=== PATIENT | female | born 1935 | race Caucasian/White ===

== ENCOUNTER 2018-06-21 09:38 | Emergency (ER) | payer OTHER ==
[~2018-06-21] VITALS: Ht 175.3 cm; Wt 113.4 kg
[2018-06-21 11:41] VITALS: BP 156/78
== END 2018-06-21 11:56 | disposition home or self-care (01) ==
LOC: FSED 09:38
DX: L03.031 Cellulitis of right toe (principal); E11.40 Type 2 diabetes mellitus with diabetic neuropathy, unspecified; I10 Essential (primary) hypertension; Z89.512 Acquired absence of left leg below knee
CPT/HCPCS: 99282

== ENCOUNTER 2019-07-02 12:59 | Inpatient (IN) | payer MEDICARE, OTHER ==
[~2019-07-02] VITALS: Ht 170.2 cm; Wt 118.5 kg
--- OUTSIDE RECORDS SUMMARY | 2019-07-02 13:02 | XMS REPORT ---
Author [facility] Organization [facility] Address [address] [place] [address] Phone Unavailable Care Team Providers Care Marketing Information Coordinator Name Role Phone NO, PCP PCP Unavailable Problems This patient has no known problems. Allergies, Adverse Reactions, Alerts Allergy Name Allergy Type Status Severity Reaction(s) Onset Date Inacti ve Date Treating Clinician Comments Source Sulfa (Sulfonamide Antibiotics) Allergy to Substance Active Sever e 2018-06-21 00:00:00 [facility] Codeine Allergy to Substance Active Moderate 2018-06-21 00:00:00 [facility] Medications This patient has no known medications. Procedures This patient has no known procedures. Encounters Start Date/Time End Date/Time [facility]counter Type [facility] Encounter ID Source 2018-06-21 09:38:00 2018-06-21 11:56:[address] [facility] [id number] [facility] Results This patient has no known results.
[2019-07-02] MEDS ORDERED: PANTOPRAZOLE 40 MG 10ML VIAL IV ONE (13:45)
--- NOTE | 2019-07-02 14:00 | Diagnostic Imaging Report ---
EXAMINATION: CHEST SINGLE (PORTABLE) INDICATION: Chest pain COMPARISON: None FINDINGS: LINES/TUBES:EKG leads overlie the chest. LUNGS:The lungs are mildly hyperinflated. There is perihilar fullness and indistinctness of the pulmonary vasculature. Mild bibasilar patchy opacities. PLEURA:No pleural effusion or pneumothorax. MEDIASTINUM:Mild cardiomegaly. BONES/SOFT TISSUES:No acute osseous injury. ABDOMEN:No free air under the diaphragm. IMPRESSION: Mild cardiomegaly and pulmonary interstitial edema. Mild bibasilar patchy opacities, most likely subsegmental atelectasis. Signed by: Doris Pbalo MD on 07/02/2019 1:56 PM
--- NOTE | 2019-07-02 14:08 | Emergency Department Note ---
History of Present Illnes History of Present Illness History of Present Illness This is a 83 year old female PRESENTS VIA EMS WITH CHEST PAIN X 2 WKS, WORSE THIS AM. Historian: Patient, Sex Crimes Detective/EMS Arrival Mode: [facility] Treatment TRAFFIC OR SYSTEM DISPATCHER: See EMS Report (NITRO X 2, ASPIRIN 324 MG PO) Veterinary Livestock Inspector Required: No Onset (how long ago): week(s) (2 WEEKS) Location: ANTERIOR CHEST Quality: PRESSURE Radiation: non-radiation Severity: severe Onset quality: gradual Duration (how long): week(s) (2 WKS) Timing of current episode: intermittent Progression: worsening Chronicity: new Relieving factors: rest Exacerbating factors: other (EXERTION) Associated symptoms: diaphoresis, shortness of breath Treatments prior to arrival: aspirin, other (NITRO) Risk factors: Y Past Medical/Family History Physician Review I have reviewed the patient's past medical and family history. Any updates have been documented here. Past Medical History Recent Fever: No Clinical Suspicion of Infectio: No New/Unexplained Change in Ment: No Past Medical History: Hypertension, Diabetes, Hyperlipedemia Past Surgical History: Appendectomy, Hysterectomy Other Surgery: BK AMPUTATION OF LEFT LEG Social History Smoking Cessation: Former smoker Counseling Performed: No Alcohol Use: Occasional Any Illegal Drug Use: No TB Exposure/Symptoms: No Physically hurt or threatened: No Family History Family history of heart diseas: Yes (FATHER) Other Last Tetanus: UTD Review of Systems Review of Systems Constitutional: no symptoms EENTM: no symptoms Cardiovascular: chest pain Respiratory: dyspnea on exertion (OCCURS WITH CHEST PRESSURE) Gastrointestinal: no symptoms Genitourinary: no symptoms Musculoskeletal: no symptoms Integumentary: no symptoms Neurological: no symptoms Psychological: no symptoms Endocrine: no symptoms Hematological/Lymphatic: no symptoms Review of other systems All other systems reviewed and negative. Physical Exam Related Data Allergies: Coded Allergies: Sulfa (Sulfonamide Antibiotics) (Verified Allergy, Severe, 06/21/18) codeine (Verified Allergy, Intermediate, 06/21/18) Physical Exam CONSTITUTIONAL Constitutional: well-developed, morbidly obese HENT HENT: normocephalic, atraumatic, oropharynx clear/moist, nose normal HENT - Ear: left ext ear normal, right ext ear normal EYES Eyes: PERRL, conjunctivae normal NECK Neck: ROM normal PULMONARY Pulmonary: effort normal, breath sounds normal CARDIOVASCULAR Cardiovascular: regular rhythm, heart sounds normal, capillary refill normal, normal rate GASTROINTESTINAL Abdominal: soft, nontender, bowel sounds normal GENITOURINARY Genitourinary: exam deferred SKIN Skin: warm, dry MUSCULOSKELETAL Musculoskeletal: ROM normal NEUROLOGICAL Neurological: alert, oriented x 3, no gross motor or sensory deficits PSYCHOLOGICAL Psychiatric/behavioral: mood/affect normal, judgement normal Results Laboratory Laboratory Laboratory Tests Test 07/02/19 14:33 White Blood Count 8.07 x10e3/uL (4.8-10.8) Red Blood Count 4.37 x10e6/uL (3.6-5.1) Hemoglobin 13.3 g/dL (12.0-16.0) Hematocrit 41.6 % (34.2-44.1) Mean Corpuscular Volume 95.2 fL (81-99) Mean Corpuscular Hemoglobin 30.4 pg (28-32) Mean Corpuscular Hemoglobin Concent 32.0 g/dL (31-35) Red Cell Distribution Width 13.0 % (11.7-14.4) Platelet Count 201 x10e3/uL (140-360) Neutrophils (%) (Auto) 73.5 % (38.7-80.0) Lymphocytes (%) (Auto) 20.6 % (18.0-39.1) Monocytes (%) (Auto) 3.8 % (4.4-11.3) Eosinophils (%) (Auto) 0.9 % (0.0-6.0) Basophils (%) (Auto) 0.5 % (0.0-1.0) Neutrophils # (Auto) 5.9 (2.1-6.9) Lymphocytes # (Auto) 1.7 (1.0-3.2) Monocytes # (Auto) 0.3 (0.2-0.8) Eosinophils # (Auto) 0.1 (0.0-0.4) Basophils # (Auto) 0.0 (0.0-0.1) Absolute Immature Granulocyte (auto 0.06 x10e3/uL (0-0.1) Prothrombin Time 13.6 seconds (11.9-14.5) Prothromb Time International Ratio 0.98 Activated Partial Thromboplast Time 26.6 seconds (23.8-35.5) Sodium Level 138 mmol/L (136-145) Potassium Level 4.1 mmol/L (3.5-5.1) Chloride Level 104 mmol/L (98-107) Carbon Dioxide Level 24 mmol/L (22-29) Anion Gap 14.1 mmol/L (8-16) Blood Urea Nitrogen 25 mg/dL (7-26) Creatinine 1.34 mg/dL (0.57-1.11) Estimat Glomerular Filtration Rate 38 ML/MIN (60-) BUN/Creatinine Ratio 19 (6-25) Glucose Level 309 mg/dL (74-118) Calcium Level 8.7 mg/dL (8.4-10.2) Magnesium Level 2.0 MG/DL (1.3-2.1) Total Bilirubin 0.6 mg/dL (0.2-1.2) Aspartate Amino Transf (AST/SGOT) 19 IU/L (5-34) Alanine Aminotransferase (ALT/SGPT) 22 IU/L (0-55) Alkaline Phosphatase 109 IU/L (40-150) Creatine Kinase 60 IU/L (29-168) Creatine Kinase MB 2.10 ng/mL (0-5.0) Troponin I 0.075 ng/mL (0-0.300) B-Type Natriuretic Peptide 210.9 pg/mL (0-100) Total Protein 7.6 g/dL (6.5-8.1) Albumin 3.2 g/dL (3.5-5.0) Globulin 4.4 g/dL (2.3-3.5) Albumin/Globulin Ratio 0.7 (0.8-2.0) Lab results reviewed: Yes Imaging Impressions EXAMINATION: CHEST SINGLE (PORTABLE) INDICATION: Chest pain COMPARISON: None FINDINGS: LINES/TUBES:EKG leads overlie the chest. LUNGS:The lungs are mildly hyperinflated. There is perihilar fullness and indistinctness of the pulmonary vasculature. Mild bibasilar patchy opacities. PLEURA:No pleural effusion or pneumothorax. MEDIASTINUM:Mild cardiomegaly. BONES/SOFT TISSUES:No acute osseous injury. ABDOMEN:No free air under the diaphragm. IMPRESSION: Mild cardiomegaly and pulmonary interstitial edema. Mild bibasilar patchy opacities, most likely subsegmental atelectasis. Signed by: Doris Pablo MD on 07/02/2019 1:56 PM Procedures 12 Lead ECG Interpretation Veterinary Livestock Inspector: Interpreted by ED physician Date: July 02, 2019 Time: 13:00 Prior ENTERPRISE PROJECT MANAGER tracings: reviewed Rhythm: sinus rhythm Rate: normal (62) QRS axis: normal ST Segments Normal: Yes Clinical Impression: normal ECG Critical Care Time Subsequent provider I assumed direction of critical care for this patient from another provider of my specialty. Assessment & Plan Assessment & Plan Problems: (1) Chest pain Depart Disposition: ADMITTED (OBS) Medications in the ED Pantoprazole Sodium 40 mg ONCE ONCE IV ; Start 07/02/19 at 13:45; Stop 07/02/19 at 13:46 CARTER HARDING MD July 02, 2019 13:58
[2019-07-02 14:57] LABS: BASOPHILS % 0.5 % (0.0-1.0); EOSINOPHILS # (AUTO) 0.1 (0.0-0.4); EOSINOPHILS % 0.9 % (0.0-6.0); HEMATOCRIT 41.6 % (34.2-44.1); HEMOGLOBIN 13.3 g/dL (12.0-16.0); LYMPHOCYTES # (AUTO) 1.7 (1.0-3.2); LYMPHOCYTES % 20.6 % (18.0-39.1); MEAN CORPUSCULAR HEMOGLOBIN 30.4 pg (28-32); MEAN CORPUSCULAR VOLUME 95.2 fL (81-99); MONOCYTES # (AUTO) 0.3 (0.2-0.8); MONOCYTES % 3.8 % (4.4-11.3); NEUTROPHILS # (AUTO) 5.9 (2.1-6.9); NEUTROPHILS % 73.5 % (38.7-80.0); PLATELET COUNT 201 x10e3/uL (140-360); RED BLOOD COUNT 4.37 x10e6/uL (3.6-5.1)
[2019-07-02] MEDS ORDERED: ONDANSETRON HCL INJ 2MG/ML 2ML 2 MG/ML VIAL IV PRN ×2 (15:00→21:00)
[2019-07-02] MEDS ORDERED: NITROGLYCERIN 0.4 MG SUBL SL PRN ×2 (15:00→21:00)
[2019-07-02] MEDS ORDERED: ENOXAPARIN SODIUM INJ 100 MG/ML SYR SC ONE ×2 (15:00→19:05)
[2019-07-02] MEDS ORDERED: MORPHINE SULFATE 2 MG/ML SYR 1ML IV PRN ×2 (15:00→21:00)
[2019-07-02 15:08] LABS: INR 0.98; PARTIAL THROMBOPLASTIN TIME 26.6 seconds (23.8-35.5); PROTHROMBIN TIME 13.6 seconds (11.9-14.5)
[2019-07-02 15:18] LABS: ALBUMIN 3.2 g/dL (3.5-5.0); ALBUMIN/GLOBULIN RATIO 0.7 (0.8-2.0); ANION GAP 14.1 mmol/L (8-16); CALCIUM 8.7 mg/dL (8.4-10.2); CREATININE, SERUM 1.34 mg/dL (0.57-1.11); POTASSIUM 4.1 mmol/L (3.5-5.1)
[2019-07-02 15:25] LABS: CREATINE KINASE MB 2.1 ng/mL (0-5.0)
--- OUTSIDE RECORDS SUMMARY | 2019-07-02 15:27 | XMS REPORT ---
Author Author [facility] Organization [facility] Address [address] [place] [address] Phone Unavailable Care Team Providers Care Client Delivery Specialist Name Role Phone BYRON, PCP PCP Unavailable Syd HARDING Attphylupe Unavailable Problems This patient has no known problems. Allergies, Adverse Reactions, Alerts Allergy Name Allergy Type Status Severity Reaction(s) Onset Date Inacti ve Date Treating Clinician Comments Source Sulfa (Sulfonamide Antibiotics) Allergy to Substance Active Sever e 2018-06-21 00:00:00 [facility] Codeine Allergy to Substance Active Moderate 2018-06-21 00:00:00 [facility] Medications This patient has no known medications. Procedures This patient has no known procedures. Encounters Start Date/Time End Date/Time Encounter Type [facility] Encounter ID Source 2018-06-21 09:38:00 2018-06-21 11:56:00 Departed Emergency Room [facility] [id number] [facility] Results Test Description Test Time Test Comments Results Result Comments Source CHEST SINGLE (PORTABLE) 2019-07-02 13:55:00 [facility] [address] [place], [place] [address] Patient Name: DIONNA BLAS MR #: [id number] : 1935 Age/Sex: 83/F Req #: [id number] Adm Physician: Ordered by: CARTER HARDING MD Report #: [id number] Location: ER Room/Bed: Procedure: [id number] DX/CHEST SINGLE (PORTABLE) Exam Date: 07/02/19 Exam Time: 1315 REPORT STATUS: Signed EXAMINATION: CHEST SINGLE (PORTABLE) INDICATION: Chest pain COMPARISON: None FINDINGS: LINES/TUBES:EKG leads overlie the chest. LUNGS:The lungs are mildly hyperinflated. There is perihilar fullness and indistinctness of the pulmonary vasculature. Mild bibasilar patchy opacities. PLEURA:No pleural effusion or pneumothorax. MEDIASTINUM:Mild cardiomegaly. BONES/SOFT TISSUES:No acute osseous injury. ABDOMEN:No free air under the diaphragm. IMPRESSION: Mild cardiomegaly and pulmonary interstitial edema. Mild bibasilar patchy opacities, most likely subsegmental atelectasis. Signed by: Lee Lagos MD on 07/02/2019 1:56 PM Dictated By: LEE LAGOS MD 1351 Transcribed By: MARY ANNE on 07/02/19 1353 COPY TO: CARTER HARDING MD
[2019-07-02] MEDS ORDERED: FUROSEMIDE INJ 10 MG/ML 4 ML VIAL IV SCH (17:15)
[2019-07-02] MEDS ORDERED: FUROSEMIDE INJ 10 MG/ML 2 ML VIAL IV SCH (17:30)
--- NOTE | 2019-07-02 18:45 | NUR ---
Assisted pt to rr via wheelchair, pt noted to be diaphoretic and reports chest pain. Pt taken back to room. Pt noted to have change in cardiac rythm, ekg performed and 1 NTG given SL. Pt hypotensive, 80/40, HR: 57. Dr. Barrientos notified and at bedside. STEMI activated. Cinthya AZEVEDO assisting, recieved report and assisting with patient workup and preparing pt for cathlab. Pt is DNR, Dr. Martinez from cardiology at bedside.
[2019-07-02] MEDS ORDERED: SODIUM CHLORIDE 0.9% 1000ML 0 ML ONE (18:59)
[2019-07-02] MEDS ORDERED: HEPARIN SOD/SOD CHLORIDE 2,000 ML ONE (19:24)
[2019-07-02] MEDS ORDERED: SODIUM CHLORIDE 0.9% 1000ML 1,000 ML ONE ×2 (19:24→20:48)
[2019-07-02] MEDS ORDERED: HEPARIN SOD (PORCINE) 1000 UNIT/ML 30ML ONE (19:24)
[2019-07-02] MEDS ORDERED: NITROGLYCERIN/D5W 200 MCG/ML 250 ML ONE (19:24)
[2019-07-02] MEDS ORDERED: IOPAMIDOL 370 MG/ML 200 ML INFUS..BTL INJ ONE ×2 (19:24→20:41)
[2019-07-02] MEDS ORDERED: LIDOCAINE HCL 2% LOCAL 20 ML VIAL ONE (19:24)
[2019-07-02] MEDS ORDERED: FENTANYL CITRATE/PF 100MCG/2 ML INJ ONE (19:26)
[2019-07-02] MEDS ORDERED: MIDAZOLAM HCL 2 MG/2 ML VIAL ONE (19:26)
[2019-07-02] MEDS ORDERED: BIVALRIUDIN 250 MG/VIAL VIAL IV ONE (19:26)
[2019-07-02] MEDS ORDERED: SODIUM CHLORIDE 0.9% 50ML 0 ML ONE (19:27)
--- NOTE | 2019-07-02 19:40 | NUR ---
PT TO NETWORKS SOFTWARE CONSULTANT WITH RN, PT AWARE OF POC, REPORT GIVEN ALL QUESTIONS ANSWERED
--- OUTSIDE RECORDS SUMMARY | 2019-07-02 19:41 | XMS REPORT ---
Author Author [facility] Organization [facility] Address [address] [place] [address] Phone Unavailable Care Team Providers Care Body And Fender Mechanic Name Role Phone BYRON, PCP PCP Unavailable Syd HARDING Attphylupe Unavailable Problems This patient has no known problems. Allergies, Adverse Reactions, Alerts Allergy Name Allergy Type Status Severity Reaction(s) Onset Date Inacti ve Date Treating Clinician Comments Source Sulfa (Sulfonamide Antibiotics) Allergy to Substance Active Sever e 2018-06-21 00:00:00 [facility] Codeine Allergy to Substance Active Moderate 2018-06-21 00:00:00 [facility] Medications This patient has no known medications. Procedures This patient has no known procedures. Encounters Start Date/Time End Date/Time Encounter Type [facility] Encounter ID Source 2018-06-21 09:38:00 2018-06-21 11:56:00 Departed Emergency Room [facility] [id number] [facility] Results Test Description Test Time Test Comments Results Result Comments Source CHEST SINGLE (PORTABLE) 2019-07-02 13:55:00 [facility] [address] [place], [place] [address] Patient Name: DIONNA BLAS MR #: [id number] : 1935 Age/Sex: 83/F Req #: [id number] Adm Physician: Ordered by: CARTER HARDING MD Report #: [id number] Location: ER Room/Bed: Procedure: [id number] DX/CHEST SINGLE (PORTABLE) Exam Date: 07/02/19 Exam [...] 1:56 PM Dictated By: LEE LAGOS MD 1353 Transcribed By: MARY ANNE on 07/02/19 1357 COPY TO: CARTER HARDING MD
[2019-07-02] MEDS ORDERED: EPTIFIBATIDE 20 ML ONE (20:17)
[2019-07-02] MEDS ORDERED: EPTIFIBATIDE 75mg 100ML 100 ML ONE (20:17)
[2019-07-02] MEDS ORDERED: EPTIFIBATIDE 10 ML ONE (20:18)
[2019-07-02] MEDS ORDERED: NOREPINEPHRINE 8 MG/D5W 250 ML 250 ML ONE (20:23)
[2019-07-02] MEDS ORDERED: PRASUGREL 10 MG TAB ONE (20:51)
[2019-07-02] MEDS ORDERED: ASPIRIN 325 MG TAB ONE (20:51)
[2019-07-02 21:00] VITALS: BP 174/107
[2019-07-02] MEDS ORDERED: MORPHINE SULFATE INJ 4 MG/ML INJ 1ML IV PRN (21:00)
[2019-07-02] MEDS ORDERED: SODIUM CHLORIDE 0.9% 1000ML 1,000 ML IV SCH (21:00)
[2019-07-02] MEDS ORDERED: PROMETHAZINE HCL (IM) 25 MG/ML VIAL EACH EAR PRN (21:00)
[2019-07-02] MEDS ORDERED: FAMOTIDINE 20 MG TAB PO SCH (21:00)
[2019-07-02] MEDS ORDERED: METOPROLOL TARTRATE 25 MG TAB PO SCH (21:00)
[2019-07-02] MEDS ORDERED: SIMVASTATIN 20 MG TAB PO SCH (21:00)
[2019-07-02] MEDS ORDERED: FUROSEMIDE INJ 10 MG/ML 4 ML VIAL ONE (21:13)
[2019-07-02] MEDS ORDERED: ASPIRIN 81 MG CHEW TAB PO ONE (21:30)
[2019-07-02] MEDS ORDERED: EPINEPHRINE HCL SYRINGE ONE (21:32)
--- OUTSIDE RECORDS SUMMARY | 2019-07-02 21:34 | XMS REPORT ---
Author Author [facility] Organization [facility] Address [address] [place] [address] Phone Unavailable Care Team Providers Care Ticketing Clerk Name Role Phone BYRON, PCP PCP Unavailable Syd HARDING Attphylupe Unavailable Problems This patient has no known problems. Allergies, Adverse Reactions, Alerts Allergy Name Allergy Type Status Severity Reaction(s) Onset Date Inacti ve Date Treating Clinician Comments Source Sulfa (Sulfonamide Antibiotics) Allergy to Substance Active Sever e 2018-06-21 00:00:00 [facility] Codeine Allergy to Substance Active Moderate 2018-06-21 00:00:00 [facility] Medications This patient has no known medications. Procedures This patient has no known procedures. Encounters Start Date/Time End Date/Time Encounter Type Admission Type [facility] Care Department Encounter ID Source 2018-06-21 09:38:00 2018-06-21 11:56:00 Departed Emergency Room [facility] [id number] [facility] Results Test Description Test Time Test Comments Results Result Comments Source CHEST SINGLE (PORTABLE) 2019-07-02 13:55:00 [facility] [address] [place], [place] [address] Patient Name: DIONNA BLAS MR #: [id number] : 1935 Age/Sex: 83/F Req #: [id number] Adm Physician: Ordered by: CARTER HARDING MD Report #: [id number] Location: ER Room/Bed: Procedure: [id number] DX/CHEST SINGLE (PORTABLE) Exam Date: 07/02/19 Exam [...] 1:56 PM Dictated By: LEE LAGOS MD 1357 Transcribed By: MARY ANNE on 07/02/19 1359 COPY TO: CARTER HARDING MD
[2019-07-02 21:45] VITALS: BP 174/107
[2019-07-02] MEDS ORDERED: LORAZEPAM INJ 2 MG/ML VIAL IV PRN (21:45)
[2019-07-02] MEDS ORDERED: MORPHINE SULFATE INJ 4 MG/ML INJ 1ML ONE (21:46)
[2019-07-02] MEDS: MORPHINE SULFATE INJ 4 MG/ML INJ 1ML IV PRN (21:50)
[2019-07-02 22:00] VITALS: BP 134/66
[2019-07-02] MEDS ORDERED: HYDROMORPHONE 1MG/1ML INJ ONE (22:33)
[2019-07-02] MEDS ORDERED: MORPHINE SULFATE INJ 4 MG/ML INJ 1ML IV STA (22:35)
[2019-07-02] MEDS ORDERED: HYDROMORPHONE 1MG/1ML INJ IV STA (22:35)
[2019-07-02 23:00] VITALS: BP 90/42
--- NOTE | 2019-07-02 23:31 | Consultation ---
DATE OF CONSULTATION: 07/02/2019 Cardiology consultation REQUESTING PHYSICIAN: Benedicto Rodriguez MD. REASON FOR CONSULTATION: Chest pain. HISTORY OF PRESENT ILLNESS: This is an 83-year-old woman with history of hypertension, hyperlipidemia, diabetes mellitus, and peripheral arterial disease, status post prior left BKA, who presents with complaints of chest pain. She reports she has been having chest pain for the last six weeks. She describes it as an elephant sitting on her chest, 8.5/10 in severity, lasting minutes at a time. The pain typically occurs with activity. She denies any shortness of breath, nausea, or diaphoresis. There was no radiation. The chest pain was more severe today, so she called EMS. On EMS evaluation, she was given sublingual nitroglycerin and 324 mg of aspirin with improvement in her symptoms. Of note, she also reports she has been having symptoms suggestive of orthopnea and PND for the last two months. Otherwise, denies palpitations or lower extremity edema. REVIEW OF SYSTEMS: Negative except as per HPI. PAST MEDICAL HISTORY: 1. Hypertension. 2. Hyperlipidemia. 3. Diabetes mellitus. 4. Peripheral arterial disease, status post left BKA. PAST SURGICAL HISTORY: 1. Left BKA. 2. Appendectomy. 3. Hysterectomy. SOCIAL HISTORY: She quit smoking in 1969, previously smoked up to three packs a day for 10 years. No alcohol or illicit drugs. FAMILY HISTORY: Pertinent for father with heart disease, although details are not known. ALLERGIES: PLEASE SEE EMR. MEDICATIONS: Please see medication list. PHYSICAL EXAMINATION: VITAL SIGNS: Temperature 98 degrees, pulse 52, respiratory rate 22, blood pressure 159/52, and oxygen saturation 99% on 2 L nasal cannula. GENERAL: Obese woman, in no acute distress. Well developed, well nourished. HEENT: Normocephalic, atraumatic. Pupils equal. No scleral icterus. NECK: Supple. No thyromegaly or cervical lymphadenopathy. No carotid bruits. LUNGS: Clear to auscultation bilaterally. No wheezes or crackles. CARDIOVASCULAR: Normal rate. Regular rhythm. No murmur. Normal S1, S2. ABDOMEN: Soft, nontender. EXTREMITIES: Status post left BKA 1+ pitting edema on the right with skin changes consistent chronic venous stasis. NEUROLOGIC: Nonfocal exam. LABORATORY DATA: Sodium 138, potassium 4.1, chloride 104, CO2 of 24, BUN 25, and creatinine 1.34. Troponin 0.075. BNP 210. WBC 8.07, hemoglobin 13.3, hematocrit 41.6, and platelets 201. EKG, normal sinus rhythm, normal ECG. IMPRESSION: 1. Unstable angina. 2. Hypertension. 3. Hyperlipidemia. 4. Diabetes mellitus. 5. Peripheral arterial disease, status post prior left [id number] amputation. RECOMMENDATIONS: Trend cardiac markers to rule out myocardial infarction. BNP elevation is noted. Echocardiogram has been ordered to evaluate LV systolic and diastolic function as well as check for regional wall motion abnormalities. If the patient rules out for myocardial infarction, plan for nuclear stress test in the morning. Otherwise, she will need to proceed with cardiac catheterization if she rules in. Plan of care was explained to the patient, who expressed understanding. Check fasting lipid panel, attempt gentle diuretics, monitor creatinine closely as it is elevated and baseline is unknown. Thank you for this consult. We will continue to follow. ADDENDUM: Patient developed 10/10 chest pain on returning from the bathroom at 1845. On evaluation, patient was mildly diaphoretic and uncomfortable appearing. Dynamic EKG changes were seen on telemetry. STAT EKG was ordered and 0.4 mg SL NTG was given with resolution of chest pain. EKG revealed ST elevation in aVR with horizontal ST depression inferolaterally. labor relations specialist was activated and patient was sent for emergent coronary angiography. Cele Wang MD ABS/MODL /[id number] MTDAlfonzo
[2019-07-03] VITALS (7 sets, daily range): BP systolic 57–98; BP diastolic 24–47
--- NOTE | 2019-07-03 02:01 | Consultation ---
DATE OF CONSULTATION: 07/02/2019 Cardiology Consultation Note REASON FOR CONSULTATION: ST elevation myocardial infarction. HISTORY OF PRESENT ILLNESS: Ms. Garibay is an 83-year-old female with history of peripheral arterial disease, who comes in with substernal chest pain. EKG showed a marked ST depression concerning for left main stenosis. She was taken emergent to the cardiac laborer pullet farm. No further history could be obtained. No family was present. FAMILY HISTORY: Unobtainable. SOCIAL HISTORY: Unobtainable. REVIEW OF SYSTEMS: Unobtainable due to cardiogenic shock. PHYSICAL EXAMINATION: VITAL SIGNS: Afebrile, heart rate 98, blood pressure 78/40, O2 sats 88%. CARDIOVASCULAR: Regular rhythm, tachycardic. Distant heart sounds. Pedal pulses absent in the right leg. Left below-knee amputation. Obese, fairly. LUNGS: Few crackles bilaterally. LABORATORY DATA: Echocardiogram was reviewed. Labs are pending. ASSESSMENT: ST-elevation myocardial infarction. RECOMMENDATIONS: Emergency coronary angiography will be performed. This was discussed with the patient. She is agreeable for the same. The patient agrees with a DNR status, which will be followed per her request. Overall prognosis is poor. MD VANDANA Kwon/NANDA /[id number]
--- NOTE | 2019-07-03 02:16 | Operative Report ---
DATE OF PROCEDURE: 07/02/2019 SURGEON: Marvin Mitchell MD INDICATION: ST elevation myocardial infarction. PROCEDURES PERFORMED: 1. Ultrasound-guided access in the right femoral artery. 2. Left heart catheterization, selective coronary angiography. 3. PTCA and stent in the left main, left anterior, descending and circumflex arteries in a bifurcating fashion. COMPLICATIONS: Small hematoma right groin. RECOMMENDATIONS: Dual antiplatelet therapy for life, staged intervention on right coronary artery. DESCRIPTION OF PROCEDURE: Access obtained in the right femoral artery. A 6-Uzbek sheath was placed. Coronary angiography demonstrated 80% ostial left main stenosis, 90% to 99% distal left main stenosis extending into the ostium of the left anterior descending and circumflex arteries with FOX-2 flow. Right coronary artery proximal 80%, mid 90% stenosis, heavy calcification. LV end-diastolic pressure of 24. No gradient across the aortic valve on pullback. The left main was cannulated using an XB3.0, 6-Uzbek guiding catheter. Two wires were advanced down the LAD and circumflex. Serial dilatation of the left anterior descending artery ostium and circumflex were performed. A 3.0 x 16 mm stent was deployed in the left main extending into the left anterior descending artery. The wire was negotiated through the struts of the stent and dilated. Another 2.7 x 16 mm stent was deployed extending from the left main into the circumflex. Ostial left main was stented using a 3.0 x 8 mm stent at 20 atmospheres with an excellent end result, FOX-3 flow in all vessels. Right groin sheath was secured in place. The patient transferred to ICU in stable condition with marked improvement in hemodynamics. Marvin Mitchell MD KSB/MODL /[id number]
[2019-07-03] MEDS: MORPHINE SULFATE INJ 4 MG/ML INJ 1ML IV PRN (02:31)
[2019-07-03 05:00] LABS: BASOPHILS # (AUTO) 0.1 (0.0-0.1); BASOPHILS % 0.3 % (0.0-1.0); EOSINOPHILS % 0.1 % (0.0-6.0); HEMOGLOBIN 10.7 g/dL (12.0-16.0); LYMPHOCYTES # (AUTO) 2.7 (1.0-3.2); LYMPHOCYTES % 9.3 % (18.0-39.1); MEAN CORPUSCULAR HEMOGLOBIN 30.8 pg (28-32); MEAN CORPUSCULAR HGB CONC 28.9 g/dL (31-35); MEAN CORPUSCULAR VOLUME 106.6 fL (81-99); MONOCYTES # (AUTO) 1.9 (0.2-0.8); MONOCYTES % 6.6 % (4.4-11.3); NEUTROPHILS # (AUTO) 23.9 (2.1-6.9); NEUTROPHILS % 82.4 % (38.7-80.0); PLATELET COUNT 288 x10e3/uL (140-360); RED BLOOD COUNT 3.47 x10e6/uL (3.6-5.1); RED CELL DISTRIBUTION WIDTH 13.2 % (11.7-14.4)
[2019-07-03] MEDS ORDERED: HYDROMORPHONE 1MG/1ML INJ IV PRN (05:15)
[2019-07-03] MEDS ORDERED: LORAZEPAM INJ 2 MG/ML VIAL IV PRN (05:15)
[2019-07-03 05:23] LABS: ALBUMIN 2.5 g/dL (3.5-5.0); ALBUMIN/GLOBULIN RATIO 0.7 (0.8-2.0); ANION GAP 25.7 mmol/L (8-16); CALCIUM 8.6 mg/dL (8.4-10.2); CHOL/HDL RATIO 3.1 (3.0-3.6); CREATININE, SERUM 2.27 mg/dL (0.57-1.11); POTASSIUM 4.7 mmol/L (3.5-5.1)
[2019-07-03] MEDS ORDERED: INSULIN LISPRO 100 UNIT/1 ML 3ML VIAL SQ ONE (05:45)
[2019-07-03 06:21] LABS: PHOSPHORUS 9.3 MG/DL (2.3-4.7)
[2019-07-03 06:22] LABS: CREATINE KINASE 8993 IU/L (29-168)
--- NOTE | 2019-07-03 06:22 | NUR ---
saturations since arriving to the icu would be between 49-77%. pt heart rate dropped to 20 bpm and then went asystole. at 0622.
[2019-07-03 06:52] LABS: CREATINE KINASE MB > 600.00 ng/mL (0-5.0)
[2019-07-03] MEDS ORDERED: LISINOPRIL 10 MG TAB PO SCH (09:00)
[2019-07-03] MEDS ORDERED: CLOPIDOGREL BISULFATE 75 MG TAB PO SCH (09:00)
[2019-07-03] MEDS ORDERED: ASPIRIN 81 MG ENTERIC COATED PO SCH ×2 (09:00)
[2019-07-03 11:05] LABS: BAND NEUTROPHILS % (MANUAL) 9 %; LYMPHOCYTES % (MANUAL) 13 % (19-48); MONOCYTES % (MANUAL) 6 % (3.4-9.0); NEUTROPHILS % (MANUAL) 72 % (40-74); PLATELET ESTIMATE ADEQUATE; PLATELET MORPHOLOGY COMMENT NORMAL; RBC MORPHOLOGY COMMENT NORMAL
--- NOTE | 2019-07-03 11:31 | NUR ---
pt released to [facility]. Urn box sent with home customer relations representative.
--- NOTE | 2019-07-05 06:57 | Discharge Summary ---
Summary. REASON FOR : ws secondary to acute myocardial infarction. HISTORY OF PRESENT ILLNESS AND HOSPITAL COURSE: The patient is a lady with multiple comorbidities, who presented with some chest pain where she was then noted while in the emergency room to go into STEMI. So, she was taken to the laborer prestressed concrete where she was noticed to have significant blockage of the left main that was worked on by Dr. Mitchell, which unfortunately she was noticed to have severe heart failure. The patient was lucid, incompetent, and stated that she wanted no further intervention, did not want CPR or intubation or balloon pumps or surgical intervention. The patient understood that this most likely would end in her and unfortunately, the patient continued to read overnight where she had a decrease in blood pressure as well as respiratory status with hypoxia, despite O2 supplementation did not help and by the morning unfortunately, the patient from her condition. Please see hospital chart for full details. MD HALIMA Higginbotham/NANDA /[id number]
--- NOTE | 2019-07-07 08:03 | Discharge Summary ---
ADDENDUM The patient is competent to make that decision to withhold further care, which was honored for her since she is competent to make that decision. MD HALIMA Higginbotham/NANDA /[id number]
== END 2019-07-03 11:30 | disposition expired | DRG 246 ==
LOC: ER 12:59 → UNDOADMOB 14:52 → ERHOLD 14:52 → CATH LAB 19:39 → ICU 21:31
PROVIDERS: ADMIT Internal Medicine; ATTEND Internal Medicine
PROC: 0271366 Dilation of Coronary Artery, Two Arteries, Bifurcation, with Three Drug-eluting Intraluminal Devices, Percutaneous Approach (ICD-10-PCS; principal; 2019-07-02)
PROC: 4A023N7 Measurement of Cardiac Sampling and Pressure, Left Heart, Percutaneous Approach (ICD-10-PCS; 2019-07-02)
PROC: B2111ZZ Fluoroscopy of Multiple Coronary Arteries using Low Osmolar Contrast (ICD-10-PCS; 2019-07-02)
PROC: B2151ZZ Fluoroscopy of Left Heart using Low Osmolar Contrast (ICD-10-PCS; 2019-07-02)
DX: I21.19 ST elevation (STEMI) myocardial infarction involving other coronary artery of inferior wall (principal); J96.01 Acute respiratory failure with hypoxia; Z68.41 Body mass index [BMI] 40.0-44.9, adult; I13.0 Hypertensive heart and chronic kidney disease with heart failure and stage 1 through stage 4 chronic kidney disease, or unspecified chronic kidney disease; E78.5 Hyperlipidemia, unspecified; Z90.49 Acquired absence of other specified parts of digestive tract; Z89.512 Acquired absence of left leg below knee; Z87.891 Personal history of nicotine dependence; Z82.49 Family history of ischemic heart disease and other diseases of the circulatory system; Z88.5 Allergy status to narcotic agent; Z88.2 Allergy status to sulfonamides; E66.01 Morbid (severe) obesity due to excess calories; E11.51 Type 2 diabetes mellitus with diabetic peripheral angiopathy without gangrene; Z66 Do not resuscitate; I50.9 Heart failure, unspecified; E11.22 Type 2 diabetes mellitus with diabetic chronic kidney disease; N18.3 Chronic kidney disease, stage 3 (moderate); R57.0 Cardiogenic shock
CPT/HCPCS: 36415; 71045; 76937; 80053; 80061; 82550; 82553; 82948; 83735; 83880; 84100; 84484; 85025; 85610; 85730; 87635; 92928; 92929; 92950; 93005; 93458; 99152; 99153; 99251; 99284; C1725; C1766; C1769; C1874; C2630; C9600; C9601; J0171; J0583; J1170; J1327; J1644; J1650; J1940; J2001; J2060; J2250; J2270; J3010; J7030; Q9967